=== PATIENT | male | born 1990 | race African-American/Black ===

== ENCOUNTER 2016-09-25 11:36 | Emergency (ER) | payer BC ==
[~2016-09-25] VITALS: Ht 165.1 cm; Wt 77.1 kg
[~2016-09-25 11:36] MED LIST: BACTRIM DS TAB1 EACH PO; NAPROSYN500 MG PO; NORFLEX100 MG PO
[2016-09-25 11:39] VITALS: BP 129/77
[2016-09-25] MEDS ORDERED: PENICILLIN V P500 MG PO (12:32)
== END 2016-09-25 12:35 | disposition home or self-care (01) ==
LOC: ER 11:36
DX: L04.0 Acute lymphadenitis of face, head and neck (principal)